=== PATIENT | male | born 1950 | race Caucasian/White ===

== ENCOUNTER → 2016-05-12 | Outpatient (CLI) | payer OTHER | END | disposition home or self-care (01) | LOC: RADPV 08:10 | PROVIDERS: ATTEND Legal Medicine | DX: K21.9 Gastro-esophageal reflux disease without esophagitis (principal) | CPT/HCPCS: 74247 ==

== ENCOUNTER 2017-04-24 18:04 | Emergency (ER) | payer MEDICARE, OTHER ==
[~2017-04-24] VITALS: Ht 172.7 cm; Wt 86.8 kg
[2017-04-24 18:43] LABS: BASOPHILS % (AUTO) 0.7 % (0.0-2.0); EOSINOPHILS % (AUTO) 3.1 % (1.0-6.0); HEMOGLOBIN 13.6 g/dL (13.5-17.5); LYMPHOCYTES # (AUTO) 1.8 K/uL (1.0-4.8); LYMPHOCYTES % (AUTO) 13.6 % (22.0-44.0); MEAN CORPUSCULAR HEMOGLOBIN 29.2 pg (26.0-34.0); MEAN CORPUSCULAR VOLUME 86 fL (80-100); MONOCYTES # (AUTO) 1.1 K/uL (0.1-1.0); MONOCYTES % (AUTO) 8.8 % (2.0-9.0); NEUTROPHILS # (AUTO) 9.5 K/uL (1.8-7.7); NEUTROPHILS % (AUTO) 73.8 % (40.0-70.0); PLATELET COUNT (AUTO) 317 K/uL (150-450); RED BLOOD CELL COUNT(AUTO) 4.65 MIL/uL (4.50-5.90); RED CELL DISTRIBUTION WIDTH 12.8 % (11.5-14.5)
[2017-04-24 19:00] LABS: CALCIUM, TOTAL 9.2 mg/dL (8.8-10.5); CREATININE 1.26 mg/dL (0.60-1.30); POTASSIUM 4.2 mmol/L (3.5-5.1)
[2017-04-24 19:14] LABS: GLUCOSE,POINT OF CARE 42 MG/DL (70-110)
[2017-04-24] MEDS ORDERED: DEXTROSE 50%-WATER 25 GM/50 ML SYRINGE IVP ONE (19:15)
[2017-04-24] MEDS ORDERED: ASPI81TA42 PO (19:28)
[2017-04-24] MEDS ORDERED: LABE200T PO (19:28)
[2017-04-24] MEDS ORDERED: CILO100T PO (19:28)
[2017-04-24] MEDS ORDERED: ALBI30PE SQ (19:28)
[2017-04-24] MEDS ORDERED: NIFE30TA98 PO (19:28)
[2017-04-24] MEDS ORDERED: INSLAN SQ (19:28)
[2017-04-24] MEDS ORDERED: ROSU10 PO (19:28)
[2017-04-24] MEDS ORDERED: HYDR25TA84 PO (19:28)
[2017-04-24] MEDS ORDERED: LISI40TA4 PO (19:28)
[2017-04-24] MEDS ORDERED: OMEP20CA10 PO (19:28)
[2017-04-24 19:32] LABS: APPEARANCE,URINE CLEAR (CLEAR); BILIRUBIN,URINE NEGATIVE (NEGATIVE); GLUCOSE, URINE (UA) 250 mg/dL (NEGATIVE); KETONES,URINE NEGATIVE (NEGATIVE); LEUKOCYTE ESTERASE ,URINE NEGATIVE (NEGATIVE); NITRATE,URINE NEGATIVE (NEGATIVE); OCCULT BLOOD,URINE NEGATIVE (NEGATIVE); PH,URINE 5.5 (5.0-8.0); PROTEIN,URINE NEGATIVE (NEGATIVE); UROBILINOGEN,URINE 0.2 mg/dL (<=1.0)
[2017-04-24 19:50] LABS: BACTERIA,URINE Rare /HPF (None Seen); RBC,URINE None Seen /HPF (0-2); SQUAMOUS EPITHELIAL CELL,UR Rare /LPF (None Seen); WBC,URINE None Seen /HPF (0-5)
[2017-04-24 20:13] LABS: GLUCOSE,POINT OF CARE 165 MG/DL (70-110)
[2017-04-24 21:00] VITALS: BP 158/80
[2017-04-24 21:18] LABS: GLUCOSE,POINT OF CARE 179 MG/DL (70-110)
== END 2017-04-24 21:15 | disposition home or self-care (01) ==
LOC: EMS 19:33
DX: E11.649 Type 2 diabetes mellitus with hypoglycemia without coma (principal); E86.0 Dehydration; E78.00 Pure hypercholesterolemia, unspecified; I10 Essential (primary) hypertension; F17.210 Nicotine dependence, cigarettes, uncomplicated; Z79.82 Long term (current) use of aspirin; Z79.4 Long term (current) use of insulin
CPT/HCPCS: 82962; 96374; 99284

== ENCOUNTER → 2017-08-16 | Outpatient (CLI) | payer MEDICARE, OTHER ==
[~2017-08-16] MED LIST: ALBI30PE SQ; ASPI81TA42 PO; CILO100T PO; HYDR25TA84 PO; INSLAN SQ; LABE200T PO; LISI40TA4 PO; NIFE30TA98 PO; OMEP20CA10 PO; ROSU10 PO
== END | disposition home or self-care (01) ==
LOC: RADPV 09:47
PROVIDERS: ATTEND Internal Medicine Cardiovascular Disease
DX: N40.0 Benign prostatic hyperplasia without lower urinary tract symptoms (principal); I12.9 Hypertensive chronic kidney disease with stage 1 through stage 4 chronic kidney disease, or unspecified chronic kidney disease; N18.9 Chronic kidney disease, unspecified
CPT/HCPCS: 76770

== ENCOUNTER → 2020-03-11 | Outpatient (CLI) | payer MEDICARE, OTHER ==
[~2020-03-11] MED LIST changes: +ASPI81TA40 PO; -ASPI81TA42 PO; -LABE200T PO; +LABE200T5 PO; -OMEP20CA10 PO; +OMEP20CA12 PO; -ROSU10 PO; +ROSU10TA22 PO
== END | disposition home or self-care (01) ==
LOC: RADPV 10:50
PROVIDERS: ATTEND Podiatrist Foot & Ankle Surgery
DX: M86.10 Other acute osteomyelitis, unspecified site (principal); E11.40 Type 2 diabetes mellitus with diabetic neuropathy, unspecified
CPT/HCPCS: 73660-TC

== ENCOUNTER → 2021-09-02 | Outpatient (CLI) | payer MEDICARE, OTHER ==
[~2021-09-02] MED LIST changes: -LISI40TA4 PO; +LISI40TA9 PO; -ROSU10TA22 PO; +ROSU10TA72 PO
== END | disposition home or self-care (01) ==
LOC: RADMN 09:20
PROVIDERS: ATTEND Internal Medicine Cardiovascular Disease
DX: I63.9 Cerebral infarction, unspecified (principal); J32.4 Chronic pansinusitis
CPT/HCPCS: 70551